=== PATIENT | female | born 1980 | race Caucasian/White ===

== ENCOUNTER 2018-05-25 22:43 | Emergency (ER) | payer OTHER ==
--- NOTE | 2018-05-25 23:33 | ED Physician Chart ---
ED Chief Complaint/HPI - Patient Information Date Seen:: 05/25/18 Time Seen:: 23:25 Chief Complaint:: dog bite R leg History of Present Illness:: location: right leg quality: dog bite severity: mild, mod duration; one hour context: pt was walking her dog when a neighbors dog came and bit her right leg. reports neighbors dog is a small dog. known. no recent history of rabies or other acute problems reported. says her tetanus is out of date. reports small wound right leg. says small dog bit her leg through her pant leg. no bleeding but reports bruised area with small open central portion. no paralysis or paresthesia. decided to come to the ER for physician evaluation and tetanus immunization. mod factors:none assoc s/s: none hx from pt. Vitals:: Vital Signs - 8 hr 05/25/18 23:00 Temp 98.1 F HR 80 RR 17 BP 131/102 O2 Sat % 100 Historian:: Patient Review:: Nurse's Note Reviewed ED Review of Systems - Review of Systems General/Constitutional: No fever, No chills, No weight loss, No weakness, No diaphoresis, No edema, No loss of appetite Skin: No skin lesions, No rash, No bruising Head: No headache, No light-headedness Eyes: No loss of vision, No pain, No diplopia ENT: No earache, No nasal drainage, No sore throat, No tinnitus Neck: No neck pain, No swelling, No thyromegaly, No stiffness, No mass noted Cardio Vascular: No chest pain, No palpitations, No PND, No orthopnea, No edema Pulmonary: No SOB, No cough, No sputum, No wheezing GI: No nausea, No vomiting, No diarrhea, No pain, No melena, No hematochezia, No constipation, No hematemesis G/U: No dysuria, No frequency, No hematuria Musculoskeletal: No bone or joint pain, No back pain, No muscle pain, Other ( small dog bite right lateral leg) Endocrine: No polyuria, No polydipsia Psychiatric: No prior psych history, No depression, No anxiety, No suicidal ideation Hematopoietic: No bruising, No lymphadenopathy Allergic/Immuno: No urticaria, No angioedema Neurological: No syncope, No focal symptoms, No weakness, No paresthesia, No headache, No seizure, No dizziness, No confusion, No vertigo ED Past Medical History - Past Medical History Past Medical History: No significant medical hx Family History: None Social History: Non Smoker, No Alcohol, No Drug Use, Surgical History: None Psychiatricy History: None Medication: None Family Medical History - Family Member Mother History Unknown: Yes ED Physical Exam - Physical Examination General/Constitutional: Awake, Well-developed, well-nourished, Alert, No distress, GCS 15, Non-toxic appearing, Ambulatory Head: Atraumatic Eyes: Lids, conjuctiva normal, PERRL, EOMI Skin: Nl inspection ENMT: External ears, nose nl, Nasal exam nl, Lips, teeth, gums nl Neck: Nontender, No nuchal rigidity Respiratory: Nl effort/Exclusion, Clear to Auscultation, No Wheeze/Rhonchi/Rales Cardio Vascular: RRR, No murmur, gallop, rubs, NL S1 S2 GI: No tenderness/rebounding/guarding Extremities: No tenderness or effusion, Full ROM, normal strength in all extremities (right lower limb, normal sensation , normal dorsalis, normal cap refill, there is hematoma with small central open area consistent with dog bite history. no charity bleeding, area of hematoma is about 4cm circular. no erythema. no acute signs of infection. ), No edema, Normal digits & nails Neuro/Psych: Alert/oriented Misc: Normal back, No paraspinal tenderness ED Assessment - Assessment General Assessment: stable patient with dog bite right lateral leg will give TDAP and augmentin script for 875mg po BID x 5 days and advise close clinic follow up ED Septic Shock - . Is Septic Shock (SBP<90, OR Lactate>4 mmol\L) present?: No - <6hrs of presentation: Vital Signs: Vital Signs - 8 hr 05/25/18 23:00 Temp 98.1 F HR 80 RR 17 BP 131/102 O2 Sat % 100 Assessment of Lungs: Lung CTA bilateral Assessment of Heart: RRR, No thrill Capillary refill evaluation: Capillary refill < 2 secs Skin Exam: Warm, Dry, Good Turgur ED Reassessment (Disposition) - Reassessment Reassessment:: pt stable while in ER medical decision making pt with small dog bite right lateral leg no acute bleeding, no laceration. small puncture type wound with surrounding ecchymosis about 4 cm TDAP administered augmentin script given Reassessment Condition:: Improved - Diagnosis Diagnosis:: dog bite right lateral leg with small puncture wound and ecchymosis - Aftercare/Follow up Instructions Aftercare/Follow-Up Instructions:: Refer to Discharge Instructions Medication Prescribed:: augmentin 875mg po BID x 5 days - Patient Disposition Discharge/Transfer:: Home Condition at Disposition:: Stable, Improved
== END 2018-05-25 23:47 | disposition home or self-care (01) ==
LOC: ER 22:43
DX: S81.831A Puncture wound without foreign body, right lower leg, initial encounter (principal); S80.11XA Contusion of right lower leg, initial encounter; W54.0XXA Bitten by dog, initial encounter; Y93.01 Activity, walking, marching and hiking; Y92.89 Other specified places as the place of occurrence of the external cause; Y99.8 Other external cause status
CPT/HCPCS: Z7502